=== PATIENT | female | born 1995 | race African-American/Black ===

== ENCOUNTER 2020-04-08 03:15 | Emergency (ER) | payer OTHER ==
[~2020-04-08] VITALS: Ht 165.1 cm; Wt 126.2 kg
[2020-04-08] MEDS ORDERED: ONDANSETRON PF 4 MG/2 ML VIAL. IVP ONE (03:45)
[2020-04-08] MEDS ORDERED: MORPHINE SULFATE 4 MG/ML DISP.SYRIN. IV ONE (03:45)
--- NOTE | 2020-04-08 03:56 | PHYS DOC ---
General Adult HPI: HPI: 24-year-old female who denies any significant past medical history presents the ED with complaints of sharp, nonradiating, right low back pain stating " something is stuck in there and it needs to come out," with associated dysuria and nausea. Reports history of right-sided nephrolithiasis with ureteral stents and lithotripsy, 2yrs ago when she lived in [place], [place]. Moved here to be with her girlfriend and has not established medical care. Allergic to tramadol "it messes up my stomach." LMP 2 weeks ago. Review of Systems: Review of Systems: Constitutional: Denies fever or chills Eyes: Denies change in visual acuity HENT: Denies nasal congestion or sore throat Respiratory: Denies cough or shortness of breath Cardiovascular: Denies chest pain or edema GI: Denies vomiting or diarrhea : Denies hematuria, vaginal bleeding, increased urinary frequency or urgency Musculoskeletal: Denies joint pain or swelling Integument: Denies rash or crepitus Neurologic: Denies headache, focal weakness or sensory changes Endocrine: Denies polyuria or polydipsia Lymphatic: Denies swollen glands Psychiatric: Denies depression or anxiety Current Medications: Current Meds: Current Medications Medications (Trade) Dose Ordered Sig/Piotr Start Time Stop Time Status Last Admin Dose Admin Morphine Sulfate (Morphine 4mg Syringe) 4 mg 1X ONCE 04/08/20 03:45 04/08/20 03:46 UNV Ondansetron HCl (Zofran) 4 mg 1X ONCE 04/08/20 03:45 04/08/20 03:46 UNV Physical Exam: PE: Constitutional: nontoxic appearing, uncomfortable-bent over near bed/movement makes pain worse HENT: Normocephalic, atraumatic, dry mucous membranes Eyes: EOMI, conjunctiva normal, no discharge. Neck: Normal range of motion, supple, Cardiovascular: S1/2 present, regular rhythm Lungs & Thorax: Speaking in full sentences, bilateral equal chest rise, no tachypnea or increased work of breathing Abdomen: soft, no tenderness, Skin: Warm, dry, no erythema, no rash. [] Back: No tenderness, no CVA tenderness, right sided low back pain in posterior midaxillary line, Extremities: No tenderness, no cyanosis, no edema Neurologic: Alert and oriented X 3, normal motor function, normal sensory function, no focal deficits noted. [] Psychologic: Affect normal, judgement normal, mood normal. [] Current Patient Data: Labs: Laboratory Tests Test 04/08/20 03:43 POC Urine HCG, Qualitative hcg negative (Negative) EKG: EKG: [] Radiology/Procedures: Radiology/Procedures: IMAGING REPORT Signed PATIENT: JACOBY TEE ACCOUNT: [id number] : 1995 LOCATION: ER AGE: 24 SEX: F EXAM STATUS: PRE ER ORD. PHYSICIAN: KIKE MELENDEZ DO REASON: r low back pain PROCEDURE: CT ABDOMEN PELVIS WO CONTRAST CT abdomen pelvis without contrast dated 04/08/2020. No comparison available. Clinical data indication: Low back pain. TECHNIQUE: Contiguous axial imaging the abdomen pelvis performed without the administration of IV or oral contrast. One or more of the following individualized dose reduction techniques were utilized for this examination: 1. Automated exposure control 2. Adjustment of the mA and/or kV according to patient size 3. Use of iterative reconstruction technique. FINDINGS: There is a 3 mm calcific stone at the right UVJ with mild proximal dilation of the right ureter. Right pelvicalyceal system. There is inflammatory stranding in the perinephric and periureteral fat on the right. There is a punctate calcific stone at the lower pole left kidney. No left ureteral stone or left hydronephrosis. Liver and spleen are homogeneous. No biliary ductal dilatation. The gallbladder is surgically absent. Pancreas, adrenal glands unremarkable. Unopacified GI tract normal in caliber and contour. No focal bowel wall thickening. No inflammatory stranding in the mesentery. No ascites or lymphadenopathy. Abdominal aorta normal in caliber. Images of pelvis show nondistended urinary bladder. Uterus and adnexa are u nremarkable. No free fluid or pelvic lymphadenopathy. Limited images of lung bases are clear. Heart size within normal limits. No pleural or pericardial effusion. Bone windows show no acute findings. Mild multilevel spondylosis. IMPRESSION: 1. There is a 3 mm calcific stone at the right UVJ with mild obstructive uropathy. 2. Left-sided nephrolithiasis, nonobstructive. 3. No additional acute abnormality. Normal appendix. Electronically signed by: Adi Fernandez MD (04/08/2020 4:22 AM) [facility] DICTATED AND SIGNED BY: ADI FERNANDEZ MD DATE: 04/08/20418 CC: KIKE MELENDEZ DO ~MTH0 0 Heart Score: Risk Factors: Risk Factors: DM, Current or recent (<one month) smoker, HTN, HLP, family history of CAD, obesity. Risk Scores: Score 0 - 3: 2.5% MACE over next 6 weeks - Discharge Home Score 4 - 6: 20.3% MACE over next 6 weeks - Admit for Clinical Observation Score 7 - 10: 72.7% MACE over next 6 weeks - Early Invasive Strategies Course & Med Decision Making: Course & Med Decision Making Pertinent Labs and Imaging studies reviewed. (See chart for details) Concern for right 3 mm nephrolithiasis at the UVJ with mild right ureteral di latation. Urinalysis with blood, few bacteria, 1-4 wbc, no leukocyte estrace or nitrites. Patient afebrile with no leukocytosis. On reevaluation pain is resolved and patient is sleeping comfortably. Will DC home with Flomax, Zofran and analgesia. Patient aware that she may have recently passed a stone or is about to. Will discharge home with strict ED return precautions were given for fever or chills, worsening pain, dehydration, flulike symptoms. Encouraged urgent outpatient follow-up with PMD and urology. Life-threatening processes were considered but are low suspicion at this time, given history, physical exam and ED workup. Pt was educated on all prescription medications and adverse effects. All patient's questions were answered and pt was stable at time of discharge. Life/limb-threatening differential includes but is not limited to, aortic dissection/aneurysm, cauda equina syndrome, transverse myelitis, spinal cord/epidural compression syndromes, discitis, spinal stenosis, epidural abscess or hematoma, osteomyelitis, disc herniation, surgical abdomen, stable or unstable fracture, renal/ureteral colic, sepsis, meningitis, musculoskeletal injury, traumatic injury, intraabdominal/retroperitoneal or pelvic bleeding. I spoken with the patient and her caregivers. I explained the patient's condition, diagnoses and treatment plan based on the information available to me at this time. I have answered the patient and her caregiver's questions and addressed any concerns. The patient and her caregivers have a good understanding of patient's diagnosis, condition and treatment plan as can be expected at this point. Vital signs have been stable. Patient's condition is stable and appropriate for discharge from the emergency department. Patient will pursue further outpatient evaluation with primary care physician or other designated or consulting physician as outlined in the discharge instructions. The patient and/or caregivers are agreeable to this plan of care and follow-up instructions have been explained in detail. The patient and/or caregivers have received these instructions in written form and have expressed an understanding of the discharge instructions. The patient and/or caregivers are aware that any significant change of condition or worsening of symptoms should prompt immediate return to this or the closest emergency department or call to 1. Gina Disclaimer: Proximetry Disclaimer: This electronic medical record was generated, in whole or in part, using a voice recognition dictation system. Departure Departure: Impression: Primary Impression: Right nephrolithiasis Additional Impression: Renal colic on right side Disposition: 01 DC HOME SELF CARE/HOMELESS Condition: STABLE Referrals: WILL RAMSEY MD FOLLOW UP WITH FAMILY MEDICINE: [facility], [facility] [address] [place] [address] [address] [place] [address] OR [facility] [address] [place] [address], Additional Instructions: FOLLOW UP WITH UROLOGY: [facility]ists [facility] [address] [facility], [address] [place] [address] appointments: [phone] FOLLOW WITH UROLOGY: [facility] [address] [place] [address] [facility] [address] [facility] [address] [place] [address] EMERGENCY DEPARTMENT GENERAL DISCHARGE INSTRUCTIONS Thank you for coming to [facility] (ED) today and trusting us with you care. We trust that you had a positivie experience in our Emergency Department. If you wish to speak to the department management, you may call the director at [phone]. YOUR FOLLOW UP INSTRUCTIONS ARE FOLLOWS: 1. Do you have a private Doctor? If you do not have a private doctor, please ask for a resource list of physicians or clinics that may be able to assist you with follow up care. 2. The Emergency Physician has interpreted your x-rays. The X-Ray specialist will also review them. If there is a change in the findings, you will be notified in 48 hours when at all possible. 3. A lab test or culture has been done, your results will be reviewed and you will be notified if you need a change in treatment. ADDITIONAL INSTRUCTIONS AND INFORMATION: 1. Your care today has been supervised by a physician who is specially trained in emergency care. Many problems require more than one evaluation for a complete diagnosis and treatment. We recommend that you schedule your follow up appointment as recommended to ensure complete treatment of you illness or injury. If you are unable to obtain follow up care and continue to have a problem, or if your condition worsens, we recommend that you return to the ED. 2. We are not able to safely determine your condition over the phone nor are we able to give sound medical advice over the phone. For these safety reasons, if you call for medical advice we will ask you to come to the ED for further evaluation. 3. If you have any questions regarding these discharge instructions please call the ED at [phone]. SAFETY INFORMATION: In the interest of safety, wellness, and injury prevention; we encourage you to wear your sealbelt, if you smoke; quite smoking, and we encourage family to use a protective helmet for bicycling and other sporting events that present an increased risk for head injury. IF YOUR SYMPTOMS WORSEN OR NEW SYMPTOMS DEVELOP, OR YOU HAVE CONCERNS ABOUT YOUR CONDITION; OR IF YOUR CONDITION WORSENS WHILE YOU ARE WAITING FOR YOUR FOLLOW UP APPOINTMENT; EITHER CONTACT YOUR PRIMARY CARE DOCTOR, THE PHYSICIAN WHOSE NAME AND NUMBER YOU WERE GIVEN, OR RETURN TO THE ED IMMEDIATELY. Scripts Ondansetron (ONDANSETRON ODT) 4 Mg Tab.rapdis 4 MG PO Q6HRS for Nausea/Vomiting, #15 TAB Prov: KIKE MELENDEZ DO 04/08/20 Tamsulosin Hcl (FLOMAX) 0.4 Mg Cap.er.24h 0.4 MG PO DAILY for renal colic for 7 Days, #7 CAP.SR Prov: KIKE MELENDEZ DO 04/08/20 KIKE MELENDEZ DO Apr 08, 2020 03:56
[2020-04-08] MEDS ORDERED: IV NORMAL SALINE 1,000ML 1,000 ML IV ONE (04:00)
--- NOTE | 2020-04-08 04:25 | RAD ---
CT abdomen pelvis without contrast dated 04/08/2020. No comparison available. Clinical data indication: Low back pain. TECHNIQUE: Contiguous axial imaging the abdomen pelvis performed without the administration of IV or oral contra st. One or more of the following individualized dose reduction techniques were utilized for this examinat ion: 1. Automated exposure control 2. Adjustment of the mA and/or kV according to patient size 3. Use of iterative reconstruction technique. FINDINGS: There is a 3 mm calcific stone at the right UVJ with mild proximal dilation of the right ureter. Righ t pelvicalyceal system. There is inflammatory stranding in the perinephric and periureteral fat on th e right. There is a punctate calcific stone at the lower pole left kidney. No left ureteral stone or left hydronephrosis. Liver and spleen are homogeneous. No biliary ductal dilatation. The gallbladder is surgically absent. Pancreas, adrenal glands unremarkable. Unopacified GI tract normal in caliber and contour. No focal bowel wall thickening. No inflammatory s tranding in the mesentery. No ascites or lymphadenopathy. Abdominal aorta normal in caliber. Images of pelvis show nondistended urinary bladder. Uterus and adnexa are unremarkable. No free fluid or pelvic lymphadenopathy. Limited images of lung bases are clear. Heart size within normal limits. No pleural or pericardial ef fusion. Bone windows show no acute findings. Mild multilevel spondylosis. IMPRESSION: 1. There is a 3 mm calcific stone at the right UVJ with mild obstructive uropathy. 2. Left-sided nephrolithiasis, nonobstructive. 3. No additional acute abnormality. Normal appendix. Electronically signed by: Adi Fernandez MD (04/08/2020 4:22 AM) [facility]
[2020-04-08 04:39] LABS: BASO % 0 % (0-3); EOS # 0.1 x10^3/uL (0.0-0.7); EOS % 2 % (0-3); HEMATOCRIT 41.9 % (36.0-47.0); HEMOGLOBIN 13.4 g/dL (12.0-15.5); LYMPH # 1.5 x10^3/uL (1.0-4.8); LYMPH % 20 % (24-48); MEAN CORPUSCULAR HEMOGLOBIN 29 pg (25-35); MEAN CORPUSCULAR HGB CONC 32 g/dL (31-37); MEAN CORPUSCULAR VOLUME 91 fL (79-100); MONO # 0.4 x10^3/uL (0.0-1.1); MONO % 5 % (0-9); NEUT # 5.5 x10^3uL (1.8-7.7); NEUT % 72 % (31-73); PLATELET COUNT 287 x10^3/uL (140-400); RED BLOOD COUNT 4.61 x10^6/uL (3.50-5.40); WHITE BLOOD COUNT 7.5 x10^3/uL (4.0-11.0)
[2020-04-08 04:49] LABS: CALCIUM 8.7 mg/dL (8.5-10.1); CREATININE 0.9 mg/dL (0.6-1.0); GFR 76.3; POTASSIUM 3.9 mmol/L (3.5-5.1)
[2020-04-08 04:53] LABS: BACTERIA,URINE FEW /HPF (0-FEW); BILIRUBIN,URINE NEG (NEG); CLARITY,URINE HAZY; COLOR,URINE YELLOW; GLUCOSE,URINE NEG (NEG); NITRITE,URINE NEG (NEG); RBC,URINE >40 /HPF (0-2); SQUAMOUS EPITHELIAL CELL,UR OCC /LPF; UROBILINOGEN,URINE 0.2 mg/dL (0.2 mg/dL)
[2020-04-08 04:55] LABS: ALBUMIN 3.3 g/dL (3.4-5.0); ALBUMIN/GLOBULIN RATIO 0.8 (1.0-1.7); TOTAL BILIRUBIN 0.2 mg/dL (0.2-1.0); TOTAL PROTEIN 7.5 g/dL (6.4-8.2)
[2020-04-08] MEDS ORDERED: TAMSULOSIN 0.4 MG CAP.ER.24H. PO ONE (05:00)
[2020-04-08] MEDS ORDERED: ONDA4TAB12 PO (05:40)
[2020-04-08] MEDS ORDERED: TAMS0.4C97 PO (05:40)
[2020-04-08 06:06] VITALS: BP 141/84
== END 2020-04-08 06:05 | disposition home or self-care (01) ==
LOC: ER 03:15
DX: N20.0 Calculus of kidney (principal); M54.5 Low back pain; R30.0 Dysuria; R11.0 Nausea; Z88.8 Allergy status to other drugs, medicaments and biological substances
CPT/HCPCS: 36415; 74176; 80053; 81001; 81025; 85025; 96361; 96374; 96375; 99284; J2270; J2405; J7030